=== PATIENT | female | born 1985 | race Caucasian/White ===

== ENCOUNTER 2019-10-17 05:46 | Inpatient (IN) | payer OTHER ==
[2019-10-06 10:28] VITALS: BMI 44.6
[2019-10-17] MEDS ORDERED: MIDAZOLAM HCL 2 MG/2 ML SINGLE DOSE VIAL ONE (07:10)
[2019-10-17] MEDS ORDERED: BUPIVACAINE HCL/PF 0.5% (5 MG/ML) 30 ML VIAL IJ ONE (07:10)
[2019-10-17] MEDS ORDERED: BUPIVACAINE HCL/PF 0.25% (2.5MG/ML) 10 ML VIAL ONE (07:19)
[2019-10-17] MEDS ORDERED: SUCCINYLCHOLINE CHLORIDE 200 MG/10 ML SYRINGE ONE (07:23)
[2019-10-17] MEDS ORDERED: ROCURONIUM BROMIDE 50 MG/5 ML SYRINGE ONE (07:23)
[2019-10-17] MEDS ORDERED: PROPOFOL 20 ML ONE (07:23)
--- NOTE | 2019-10-17 07:50 | HP ---
Admitting History and Physical - Admission Chief Complaint: Morbid obesity History Source: Patient, Medical Record - Past Medical History ...LMP Comment: 09/23/19 ...: No - Past Surgical History Past Surgical History: Yes: - Smoking History Smoking history: Never smoked Have you smoked in the past 12 months: No - Alcohol/Substance Use Hx Alcohol Use: No - Social History ADL: Independent Home Medications - Allergies Allergies/Adverse Reactions: Allergies Allergy/AdvReac Type Severity Reaction Status Date / Time No Known Allergies Allergy Verified 10/17/19 07:02 - Home Medications Home Medications: Ambulatory Orders Multivitamin/Iron/Folic Acid [Centrum Adults Tablet] 1 tab PO DAILY 10/06/19 Family Medical History Family History: Unremarkable Review of Systems - Review of Systems Constitutional: denies: Chills, Fever Cardiovascular: reports: No Symptoms Respiratory: reports: No Symptoms Gastrointestinal: reports: No Symptoms Neurological: reports: No Symptoms Pain Intensity: 0 Physical Examination Vital Signs: Vital Signs Temperature 98.1 F 10/17/19 07:10 Pulse Rate 66 10/17/19 07:10 Respiratory Rate 18 10/17/19 07:10 Blood Pressure 107/68 10/17/19 07:10 O2 Sat by Pulse Oximetry (%) 99 10/17/19 07:10 Constitutional: Yes: No Distress Cardiovascular: Yes: WNL Respiratory: Yes: WNL Gastrointestinal: Yes: Soft, Abdomen, Obese Neurological: Yes: Alert, Oriented Problem List - Problems (1) Morbid obesity due to excess calories Code(s): E66.01 - MORBID (SEVERE) OBESITY DUE TO EXCESS CALORIES (2) BMI 40.0-44.9, adult Code(s): Z68.41 - BODY MASS INDEX (BMI) 40.0-44.9, ADULT Assessment/Plan Laparoscopic possible open vertical sleeve gastrectomy possible liver biopsy, upper endoscopy
[2019-10-17] MEDS ORDERED: BUPIVACAINE HCL/PF 0.25% (2.5MG/ML) 10 ML VIAL IJ ONE ×2 (08:25→09:40)
[2019-10-17] MEDS ORDERED: ceFAZolin SODIUM 1 GM VIAL ONE (08:55)
[2019-10-17] MEDS ORDERED: ONDANSETRON 4 MG/2 ML VIAL ONE (08:55)
[2019-10-17] MEDS ORDERED: LIDOCAINE HCL/PF 2% SDV 5ML VIAL ONE (08:55)
[2019-10-17] MEDS ORDERED: DEXAMETHASONE SOD PHOSPHATE 4 MG/1 ML VIAL ONE (08:55)
[2019-10-17] MEDS ORDERED: GLYCOPYRROLATE 0.2 MG/1 ML VIAL ONE (08:59)
[2019-10-17] MEDS ORDERED: NEOSTIGMINE METHYLSULFATE 0.5 MG/ML - 10 ML MDV ONE (09:00)
[2019-10-17] MEDS ORDERED: ACETAMINOPHEN INJECTION 100 ML IVPB ONE (09:13)
[2019-10-17] MEDS ORDERED: METOCLOPRAMIDE HCL INJECTION 10 MG/2 ML VIAL ONE (09:13)
[2019-10-17] MEDS ORDERED: FAMOTIDINE 20 MG/50 ML IVPB 20 MG/50 ML MG IVPB ONE (09:13)
[2019-10-17] MEDS ORDERED: ONDANSETRON 4 MG/2 ML VIAL IVPUSH PRN (09:28)
[2019-10-17] MEDS ORDERED: LACTATED RINGERS SOLUTION 1,000 ML IV SCH (09:30)
[2019-10-17] MEDS ORDERED: HYDROmorphone HCL CARPU-JECT 1 MG/1 ML DISP.SYRIN IVPB PRN (09:30)
[2019-10-17] MEDS ORDERED: ACETAMINOPHEN 1000 MG/100 ML VIAL (NON FORMULARY) IVPB SCH (09:30)
[2019-10-17] MEDS ORDERED: SODIUM CHLORIDE 1,000 ML IV SCH (09:45)
--- NOTE | 2019-10-17 09:48 | OPR ---
Operative Note Operative Date: 10/17/19 Pre-Operative Diagnosis: Morbid obesity Operation: 1. Diagnostic laparoscopy. 2. Laparoscopic vertical sleeve gastrectomy. 3. Laparoscopic wedge liver biopsy. 4. Laparoscopic oversewing of gastric staple line Post-Operative Diagnosis: Same as Pre-op (as well as hepatomegaly and oozing from gastric staple line) Surgeon: Vern Flannery Pcb Designer: Nikko La Anesthesia: General Specimens Removed: Greater curvature of stomach. Liver biopsy. Estimated Blood Loss (mls): 30 Drains & Tubes with Location: 36 Fr Bougie Operative Report Dictated: Yes
[2019-10-17] MEDS: METOCLOPRAMIDE HCL INJECTION 10 MG/2 ML VIAL IVPUSH SCH ×3 (09:55→21:32)
[2019-10-17] MEDS ORDERED: FAMOTIDINE 20 MG PREMIXED IVPB IVPB ONE (09:58)
[2019-10-17] MEDS: ACETAMINOPHEN 1000 MG/100 ML VIAL (NON FORMULARY) IVPB SCH ×3 (10:22→21:33)
[2019-10-17 10:45] LABS: HEMATOCRIT 34.7 % (32.4-45.2); HEMOGLOBIN 11.4 GM/dl (10.7-15.3); MCH 26.4 pg (25.7-33.7); MEAN PLT VOLUME 9.7 fl (7.5-11.1); PLATELET COUNT 275 K/MM3 (134-434); RBC 4.34 M/mm3 (3.60-5.2); RDW 13.4 % (11.6-15.6); WHITE BLOOD COUNT 9.4 K/mm3 (4.0-10.8)
[2019-10-17 10:48] LABS: ALBUMIN 3.3 g/dl (3.4-5.0); BILIRUBIN,TOTAL 0.2 mg/dl (0.2-1); CALCIUM 8.7 mg/dl (8.5-10); CREATININE 0.6 mg/dl (0.55-1.3); TOT PROT 7.4 g/dl (6.4-8.2)
[2019-10-17] MEDS: ONDANSETRON 4 MG/2 ML VIAL IVPUSH SCH ×3 (14:00→21:32)
[2019-10-17] MEDS: HYDROmorphone HCL CARPU-JECT 1 MG/1 ML DISP.SYRIN IVPB PRN ×2 (15:45→22:05)
[2019-10-17] MEDS: ENOXAPARIN NA (PORCINE) 40 MG/0.4 ML DISP.SYRIN SQ SCH (21:32)
[2019-10-17] MEDS: FAMOTIDINE 20 MG/50 ML IVPB 20 MG/50 ML MG IVPB SCH (21:33)
[2019-10-18] MEDS: ONDANSETRON 4 MG/2 ML VIAL IVPUSH SCH ×3 (02:27→09:20)
[2019-10-18] MEDS: ACETAMINOPHEN 1000 MG/100 ML VIAL (NON FORMULARY) IVPB SCH (03:00)
[2019-10-18] MEDS: METOCLOPRAMIDE HCL INJECTION 10 MG/2 ML VIAL IVPUSH SCH ×2 (03:00→09:20)
[2019-10-18 06:48] VITALS: BP 104/57; PULSE 67; TEMP 98.9
[2019-10-18 07:38] LABS: HEMATOCRIT 29.9 % (32.4-45.2); HEMOGLOBIN 9.8 GM/dl (10.7-15.3); MCH 26.4 pg (25.7-33.7); MCHC 32.9 g/dl (32.0-36.0); MEAN CELL VOLUME 80.4 fl (80-96); MEAN PLT VOLUME 9.3 fl (7.5-11.1); PLATELET COUNT 233 K/MM3 (134-434); RBC 3.72 M/mm3 (3.60-5.2); RDW 13.3 % (11.6-15.6); WHITE BLOOD COUNT 7.6 K/mm3 (4.0-10.8)
[2019-10-18 07:52] LABS: ALBUMIN 2.7 g/dl (3.4-5.0); BILIRUBIN,TOTAL 0.5 mg/dl (0.2-1); CALCIUM 8.1 mg/dl (8.5-10); CREATININE 0.7 mg/dl (0.55-1.3); POTASSIUM 3.8 mmol/L (3.5-5.1); TOT PROT 6.2 g/dl (6.4-8.2)
--- NOTE | 2019-10-18 08:01 | PN ---
Progress Note (short form) - Note Progress Note: 33F POD#1 for lap sleeve gastrectomy under GA. Pt. doing well this am. No anesthesia related complications.
[2019-10-18] MEDS: HYDROmorphone HCL CARPU-JECT 1 MG/1 ML DISP.SYRIN IVPB PRN (08:21)
[2019-10-18] MEDS ORDERED: HYDROmorphone HCL/PF 1 MG/ML VIAL IVPB PRN (08:58)
[2019-10-18] MEDS: FAMOTIDINE 20 MG/50 ML IVPB 20 MG/50 ML MG IVPB SCH (09:21)
[2019-10-18] MEDS: ENOXAPARIN NA (PORCINE) 40 MG/0.4 ML DISP.SYRIN SQ SCH (09:21)
[2019-10-18] MEDS ORDERED: oxyCODONE HCL 5 MG TABLET PO PRN (11:32)
--- NOTE | 2019-10-18 11:34 | PN ---
Progress Note (short form) - Note Progress Note: POD 1 No nausea/vomiting reported Vital Signs Period Temp Pulse Resp BP Sys/Campos Pulse Ox Last 24 Hr 98.3 F-99.6 F 58-95 16-18 104-134/48-71 97-100 CBC,CMP WBC 7.6 K/mm3 (4.0-10.8) 10/18/19 07:12 RBC 3.72 M/mm3 (3.60-5.2) 10/18/19 07:12 Hgb 9.8 GM/dl (10.7-15.3) L 10/18/19 07:12 Hct 29.9 % (32.4-45.2) L 10/18/19 07:12 MCV 80.4 fl (80-96) 10/18/19 07:12 MCH 26.4 pg (25.7-33.7) 10/18/19 07:12 MCHC 32.9 g/dl (32.0-36.0) 10/18/19 07:12 RDW 13.3 % (11.6-15.6) 10/18/19 07:12 Plt Count 233 K/MM3 (134-434) 10/18/19 07:12 MPV 9.3 fl (7.5-11.1) 10/18/19 07:12 Sodium 134 mmol/L (136-145) L 10/18/19 07:12 Potassium 3.8 mmol/L (3.5-5.1) 10/18/19 07:12 Chloride 105 mmol/L (98-107) 10/18/19 07:12 Carbon Dioxide 23 mmol/L (21-32) 10/18/19 07:12 Anion Gap 6 MMOL/L (8-16) L 10/18/19 07:12 BUN 8.0 mg/dl (7-18) 10/18/19 07:12 Creatinine 0.7 mg/dl (0.55-1.3) 10/18/19 07:12 Est GFR (CKD-EPI)AfAm 130.10 10/18/19 07:12 Est GFR (CKD-EPI)NonAf 112.25 10/18/19 07:12 Random Glucose 96 mg/dl (74-106) 10/18/19 07:12 Calcium 8.1 mg/dl (8.5-10) L 10/18/19 07:12 Total Bilirubin 0.5 mg/dl (0.2-1) 10/18/19 07:12 AST 33 U/L (15-37) 10/18/19 07:12 ALT 26 U/L (13-61) 10/18/19 07:12 Alkaline Phosphatase 50 U/L (45-117) D 10/18/19 07:12 Total Protein 6.2 g/dl (6.4-8.2) L 10/18/19 07:12 Albumin 2.7 g/dl (3.4-5.0) L 10/18/19 07:12 UGI: no leak/obstruction Clears Discharge home Problem List - Problems (1) Morbid obesity due to excess calories Code(s): E66.01 - MORBID (SEVERE) OBESITY DUE TO EXCESS CALORIES (2) BMI 40.0-44.9, adult Code(s): Z68.41 - BODY MASS INDEX (BMI) 40.0-44.9, ADULT
[2019-10-18] MEDS ORDERED: SODIUM CHLORIDE 1,000 ML IV SCH (11:45)
--- NOTE | 2019-10-19 08:59 | SPEC ---
DATE OF OPERATION: 10/17/2019 SURGEON: Vern Flannery MD PERSONAL INJURY LITIGATION PARALEGAL: Nikko La MD LOCATION: [facility], [address] [place] [address] PREOPERATIVE DIAGNOSIS: Morbid obesity. POSTOPERATIVE DIAGNOSIS: 1. Morbid obesity. 2. Hepatomegaly. PROCEDURE: 1. Diagnostic laparoscopy. 2. Laparoscopic vertical sleeve gastrectomy. 3. Laparoscopic wedge liver biopsy. 4. Laparoscopic oversewing gastric staple line for oozing. SPECIMEN: 1. Curvature of the stomach. 2. Liver biopsy. ESTIMATED BLOOD LOSS: 30 mL. DRAINS: None. ANESTHESIA: GET. INSTRUMENT: Bougie size 36-Egyptian. REASON FOR PROCEDURE: This is a 33-year-old female who presented to the office for weight loss options. I have described different options. We decided to proceed with laparoscopic possible open vertical sleeve gastrectomy and possible liver biopsy and upper endoscopy. RISKS AND BENEFITS: After describing the different options for weight loss management, the patient decided to proceed with a laparoscopic, possible open vertical sleeve gastrectomy. The patient was seen by the respective subspecialties and cleared for surgery. The risks and benefits of the procedure were explained. These included bleeding, infection, hernia, MS, DVT, PE, injury to surrounding structures including the liver, colon, bowel, spleen, esophagus, vessel injury, nerve injury, weight regain, gastric leak, staple line leak, sleeve leak, obstruction, vitamin deficiency, hair loss and as some of the possible complications. The patient understood and signed informed consent. DESCRIPTION OF PROCEDURE: The patient was placed supine on the operating room table. The patient underwent general endotracheal intubation. The arms were brought out at 90 degrees and secured. A footboard was placed and the legs were secured laterally with padding. The abdomen was prepped and draped in the usual sterile fashion. A timeout was performed. An incision was made in the left upper quadrant and a Veress needle inserted. Pneumoperitoneum was established. Subsequently, the Veress needle was removed and a 5-mm trocar was placed under direct visualization with the laparoscope. The laparoscopic camera was then inserted and inspection of the abdominal cavity was performed. An incision was then made in the supraumbilical area and a 15-mm trocar was placed under direct visualization. A 5-mm trocar was then placed in the right upper quadrant and a 5-mm trocar was placed below the left subcostal margin. A stab wound was made in the subxiphoid area and a Desire clamp inserted and removed to dilate the tract. A Anna liver retractor was inserted. The post was secured at the bedside by the nursing staff. The patient was placed in steep reverse Trendelenburg position and the Anna liver retractor was used to secure the liver towards the anterior abdominal wall. The pylorus was identified and 6 cm proximal to it, the lesser sac was entered using the LigaSure device. All lateral attachments to the greater curvature of the stomach, including the short gastric vessels, were ligated using the LigaSure device toward the gastrosplenic and gastrophrenic ligaments. Once this was done in its entirety, it was confirmed that all tubes within the nasal or oropharyngeal cavity, including a temperature probe were removed by Anesthesia. The bougie was then inserted by Anesthesia. Transection of the stomach was then begun staying adjacent to the bougie but away from the angularis. Transection of the stomach was performed near the portion of the stomach where the lesser sac was entered. Two laparoscopic Endo-CINDY black joe were used at this location. Laparoscopic Endo CINDY purple staple loads were then used for the remainder of the transection until the greater curvature of the stomach was fully transected. This was done staying close to the bougie. Care was taken to stay away from the angle of His cephalad. The staple line was then inspected. Hemostasis was identified. A leak test was then performed. It was clamped distally to the staple line. Irrigation solution was placed in the left upper quadrant and air was insufflated by Anesthesia into the sleeve. No leaks were identified. No obstruction was identified. This was done through the entirety of the staple line. The stomach was suctioned and the bougie removed fully intact under direct visualization. At this point, the irrigation solution was suctioned and again, hemostasis was noted. A wedge liver biopsy was then performed. The left lobe of the liver was identified. A portion of the edge of the left lobe of the liver was grasped. Using electrocautery, a wedge of the left liver was excised. The specimen was removed and sent off the field. Hemostasis of the wedge liver biopsy site was attained and noted using electrocautery. The 15-mm supraumbilical trocar was then removed and the greater curvature specimen removed from the site using a sponge stick bone. A Ben-Mireya device was then used to close the fascia with a 0 Vicryl suture at the site. Again, hemostasis was noted. The Anna liver retractor was then removed under direct visualization. Pneumoperitoneum was desufflated. Hemostasis was noted at all incision sites and Marcaine was injected at all incision sites. A 3-0 Vicryl suture was used to close the deep subcutaneous tissue at the 15-mm incision site. All incision sites were closed using 4-0 Biosyn. Sterile dressings were applied. The patient tolerated the procedure well and was transferred to the recovery room in stable condition. In addition, please note that laparoscopic oversewing using the Endo Stitch device with a suture was done in the entirety of the staple line because it was oozing. At the end, no further oozing was noted. Hemostasis was noted. Patient tolerated the procedure well and transferred to the recovery room in stable condition. Jalen [id number]
--- NOTE | 2019-10-19 16:05 | PATH ---
Surgical Pathology Report Patient Name: LUIS AARON Med. Rec. #: [id number] /Age/Gender: 1985 (Age: 33) / F Account: [id number] Location: [facility] Taken: 10/17/2019 Received: 10/17/2019 Reported: 10/19/2019 Physicians: Vern Flannery M.D. Specimen(s) Received A: GREATER CURVATURE OF STOMACH B: LIVER BIOPSY Clinical History Morbid obesity Final Diagnosis A. GREATER CURVATURE OF STOMACH, LAPAROSCOPIC GASTRIC SLEEVE EXCISION: PORTION OF STOMACH SHOWING MILD CHRONIC MUCOSAL INFLAMMATION. IMMUNOSTAIN IS NEGATIVE FOR H. PYLORI ORGANISMS. B. 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 (SEE COMMENT) TRICHROME STAIN SHOWS NO SIGNIFICANT INCREASE IN FIBROSIS. IRON STAIN SHOWS NO INCREASE IN IRON DEPOSITS. Comment: The Non-Alcoholic Steatosis (DANIEL) score is 3/8 (steatosis: 1/3; lobular inflammation: 1/3; hepatic balloonin/2). The DANIEL fibrosis stage is 0. Electronically Signed Lois Crowley M.D. Gross Description A. Received in formalin, labeled "greater curvature of stomach," is a 69 gram, 18.5 x 2.5 x 2.5 cm. portion of stomach with a stapled margin of resection. The serosa is bray-navarro with minimal attached fat. The mucosa is bray-pink with normal folds. No mucosal masses are identified. Pest Control Operator sections are submitted in one cassette. B. Received in formalin labeled "liver biopsy," is a 5.0 x 1.7 x 1.0 cm bray-brown, irregular portion of soft tissue, consistent with a liver biopsy. Pest Control Operator sections are submitted in one cassette. DL/10/18/2019 saudi/10/18/2019
== END 2019-10-18 12:25 | disposition home or self-care (01) | DRG 621 ==
LOC: FM/S 05:46
PROVIDERS: ADMIT Surgery; ATTEND Surgery
PROC: 0DJ04ZZ Inspection of Upper Intestinal Tract, Percutaneous Endoscopic Approach (ICD-10-PCS; 2019-10-17)
PROC: 0DB64Z3 Excision of Stomach, Percutaneous Endoscopic Approach, Vertical (ICD-10-PCS; principal; 2019-10-17 08:18)
PROC: 0FB24ZX Excision of Left Lobe Liver, Percutaneous Endoscopic Approach, Diagnostic (ICD-10-PCS; 2019-10-17 08:18)
DX: E66.01 Morbid (severe) obesity due to excess calories (principal); Z68.42 Body mass index [BMI] 45.0-49.9, adult
CPT/HCPCS: 36415; 74240-TC-FY; 80053; 81025; 85027; 87389; 88305-TC; 94760; J0131

== ENCOUNTER 2019-11-07 09:21 | Emergency (ER) | payer OTHER ==
[2019-11-07 09:25] VITALS: BP 112/63; PULSE 77; TEMP 98.4; BMI 42.0
--- NOTE | 2019-11-07 09:45 | PDOC ---
History of Present Illness - General Chief Complaint: Wound Stated Complaint: STOMACH WOUND Time Seen by Provider: 11/07/19 09:42 History Source: Patient Exam Limitations: No Limitations - History of Present Illness Initial Comments: Kathryn is a 34 yo F w a hx of recent gastric sleeve surgery 10/[address] Flannery, morbid obesity, and a who presents to the [facility] er stating she thinks one of her wounds are not healing appropriately because clear/red fluid is oozing from the wound in the patient's words. She wakes up in the morning and sees a stain of fluid on her blanket from the fluid coming out of the wound. She has an appointment with Dr. Flannery this coming Thursday but states she is not able to see him before then and wants to make sure her wound is okay. She denies any fevers, pain in her abdomen, chills, nausea, vomiting, skin discoloration. Surgeon: Dr. Flannery PSH: Gastric sleeve, Social Hx: Denies smoking, drinking, or other substance abuse Allergies: NKA, NKDA Past History - Medical History Allergies/Adverse Reactions: Allergies Allergy/AdvReac Type Severity Reaction Status Date / Time No Known Allergies Allergy Verified 11/07/19 09:22 Home Medications: Ambulatory Orders Multivitamin/Iron/Folic Acid [Centrum Adults Tablet] 1 tab PO DAILY 10/06/19 Calcium Carbonate [Calcium] 500 mg PO DAILY 11/07/19 Ferrous Sulfate [Iron] 325 mg PO DAILY 11/07/19 Anemia: Yes ( TEEN- TREATED) Asthma: No Cancer: No Cardiac Disorders: No CVA: No COPD: No CHF: No Dementia: No Diabetes: No GI Disorders: Yes (INTERMITTENT REFLUX) Disorders: No HTN: No Hypercholesterolemia: Yes (NO MEDS) Liver Disease: No Seizures: No Thyroid Disease: No - Surgical History Abdominal Surgery: Yes (GASTRIC SLEEVE) Appendectomy: No Cardiac Surgery: No Cholecystectomy: No Lung Surgery: No Neurologic Surgery: No Orthopedic Surgery: No - Reproductive History Is Patient Now?: No - Immunization History Immunization Up to Date: Yes - Psycho-Social/Smoking History Smoking History: Never smoked Have you smoked in the past 12 months: No - Substance Abuse Hx (Audit-C & DAST Scrn) How often the patient has a drink containing alcohol: Never Score: In Men: 4 or > Positive; In Women: 3 or > Positive: 0 Screen Result (Pos requires Nsg. Audit-10AR): Negative In the last yr the pt used illegal drug/Rx for NonMed reason: No Score: Yes response is considered Positive: 0 Screen Result (Positive result requires Nsg. DAST-10): Negative Review of Systems - Review of Systems Able to Perform ROS?: Yes Comments:: CONSTITUTIONAL: Absent: fever, no chills, no fatigue EYES: Absent: visual changes ENT: Absent: ear pain, no sore throat CARDIOVASCULAR: Absent: chest pain, no palpitations RESPIRATORY: Absent: cough, no SOB GI: Absent: abdominal pain, no nausea, no vomiting, no constipation, no diarrhea GENITOURINARY: Absent: dysuria, no frequency, no hematuria MUSKULOSKELETAL: Absent: back pain, no arthralgia, no myalgia SKIN: Absent: rash NEURO: Absent: headache *Physical Exam - Vital Signs Last Vital Signs Temp Pulse Resp BP Pulse Ox 98.4 F 77 20 112/63 100 11/07/19 09:22 11/07/19 09:22 11/07/19 09:22 11/07/19 09:22 11/07/19 09:22 - Physical Exam ABDOMEN: There are 4 incisions in the abdomen. 3 are closed and healing very well. there is one incision just above the umbilicus that is still open and clear fluid can be expressed. The surrounding skin is not erythematous, there are no fluctuant or indurant areas. Overall the abdomen is soft, non-distended, and non-tender with normal bowel sounds. GENERAL: Well-appearing, well-nourished. No apparent distress. HEENT: Normocephalic, atraumatic. PERRL, EOM intact. CARDIOVASCULAR: Normal S1, S2. Regular rate and rhythm. PULMONARY: No evidence of respiratory distress. Lungs clear to auscultation bilaterally. No wheezing, rales or rhonchi. EXTREMITIES: Normal ROM in all four extremities. No gross deformities. SKIN: Warm, dry. No rash NEUROLOGICAL: No focal neurological deficits. Medical Decision Making - Medical Decision Making Kathryn is a 34 yo F w a hx of recent gastric sleeve surgery 10/[address] Flannery, morbid obesity, and a who presents to the [facility] er stating she thinks one of her wounds are not healing appropriately because clear/red fluid is oozing from the wound in the patient's words. She wakes up in the morning and sees a stain of fluid on her blanket from the fluid coming out of the wound. She has an appointment with Dr. Flannery this coming Thursday but states she is not able to see him before then and wants to make sure her wound is okay. She denies any fevers, pain in her abdomen, chills, nausea, vomiting, skin discoloration. Vital Signs Temp Pulse Resp BP Pulse Ox 98.4 F 77 20 112/63 100 11/07/19 09:22 11/07/19 09:22 11/07/19 09:22 11/07/19 09:22 11/07/19 09:22 DDx IBNLT: Normal healing wound, sero-sanguineous discharge, cellultis MDM: Patient is very well appearing. has no abdominal pain. Wound does not appear to be infected. Will consult her surgeon and discuss the case. Plan: Surgical consult, re-assess, likely DC with Dr. Flannery FU this week. 11/07/19 10:07 Surgical Consult: Called Dr. Flannery's office and corporate legal secretary says he will call us back in the ER 11/07/19 10:52 Called service a 2nd time. Service said he should currently be in the hospital The patient appears clinically sober, has no evidence of clinical intoxication, is A&O x4, has no sustained nystagmus, and appears to be capable and have capacity to make reasonable decisions. The patient states they are currently in the emergency department, knows who the president is, states the correct time, correct day, and correct month. The patient is ambulatory in ER and has walked around the nursing station multiple times with a straight and steady gait, and is not ataxic. Tolerating PO well, ate a sandwich and drank juice. Denies having any SI or HI. Patient states will not be driving home. I discussed the physical exam findings, ancillary test results and final diagnoses with the patient. I answered all of the patient's questions. The patient was satisfied with the care received and felt comfortable with the discharge plan and treatment plan. The patient will call their primary care physician within 24 hours to arrange follow-up and will return to the Emergency Department with any new, persistent or worsening symptoms. Dispo: Home with Dr. Flannery appointment this week. Strict return precautions including signs of infection discussed with patient. Please note, this clinical encounter is taking place during a federal and state health care emergency attributable to the novel [place] Virus pandemic. The [place] of the Department of Health and Human Services has declared, pursuant to the Public Health Service Act 319F-3 (42 U.S.C. 247d-6d), that a covered persons activities related to medical countermeasures against COVID-19 will be immune from liability under Federal and State law. Discharge - Discharge Information Problems reviewed: Yes Clinical Impression/Diagnosis: Delayed surgical wound healing Qualifiers: Encounter type: initial encounter Qualified Code(s): T81.89XA - Other com plications of procedures, not elsewhere classified, initial encounter Condition: Stable Disposition: HOME - Admission No - Follow up/Referral Referrals: Vern Flannery MD [Staff Physician] - - Patient Discharge Instructions Patient Printed Discharge Instructions: How to Care for a Surgical Wound-Skin Adhesive Additional Instructions: You came into the ER with a surgical wound that does not appear infected. Please make sure to goto your scheduled appointment this week with Dr. Flannery Make sure to apply Neosporin twice daily to the wound. Cover the wound with gauze. Return to the ED immediately for redness around the site of the wound. You must return to the Emergency Department with any new complaints, if your symptoms persist and do not improve or if you develop any other new or worsening concerns. You can take over the counter Tylenol or Advil as needed for pain. Take as directed on the package insert. Do not exceed the recommended dosage. As discussed, please call to follow up with your Primary Care physician in 1-2 days to discuss what happened to you in the emergency room, and make sure you are being looked after and taken care of. Your emergency room visit is not complete without this follow up appointment. Please read the attached handouts for further information about your ER visit and what you should do moving forward. Thank you for coming to the [facility] [facility] ER. We hope you feel better soon! Print Language: [place] R[place] - Post Discharge Activity
--- NOTE | 2019-11-07 10:11 | PDOC ---
Documentation entered by Estelita Mondragon SCRIBE, acting as scribe for Eddy Garcia MD. Eddy Garcia MD: This documentation has been prepared by the Alanna thomson Brenda, SCRIBE, under my direction and personally reviewed by me in its entirety. I confirm that the documentation accurately reflects all work, treatment, procedures, and medical decision making performed by me. 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 Has appointment this Thursday. Denies pain fever chills purulent discharge no fever no redness around the site no other complaints Insert my ROS statement The patient denies chest pain, shortness of breath, headache and dizziness. Denies fever, chills, nausea, vomiting, diarrhea and constipation. Denies dysuria, frequency, urgency and hematuria. Allergies: NKA Past surgical history: Social history: No reported hx of tobacco use, alcohol use or illicit drug use. 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 Will discuss with Dr.Arad Pt. stout for outpatient follow up. Will return to ED for any signs of infection or for any concerns. Discharge - Discharge Information Problems reviewed: Yes Clinical Impression/Diagnosis: Delayed surgical wound healing Condition: Stable Disposition: HOME - Follow up/Referral Referrals: Vern Flanenry MD [Staff Physician] - - Patient Discharge Instructions Patient Printed Discharge Instructions: How to Care for a Surgical Wound-Skin Adhesive Additional Instructions: You came into the ER with a surgical wound that does not appear infected. Please make sure to goto your scheduled appointment this week with Dr. Flannery Make sure to apply Neosporin twice daily to the wound. Cover the wound with gauze. Return to the ED immediately for redness around the site of the wound. You must return to the Emergency Department with any new complaints, if your symptoms persist and do not improve or if you develop any other new or worsening concerns. You can take over the counter Tylenol or Advil as needed for pain. Take as directed on the package insert. Do not exceed the recommended dosage. As discussed, please call to follow up with your Primary Care physician in 1-2 days to discuss what happened to you in the emergency room, and make sure you a re being looked after and taken care of. Your emergency room visit is not complete without this follow up appointment. Please read the attached handouts for further information about your ER visit a nd what you should do moving forward. Thank you for coming to the [facility]. We hope you feel better soon! Print Language: KAZAKH - Post Discharge Activity
== END 2019-11-07 11:18 | disposition home or self-care (01) ==
LOC: JER 09:21
DX: T81.89XA Other complications of procedures, not elsewhere classified, initial encounter (principal)
CPT/HCPCS: 99283-25